=== PATIENT | male | born 1950 ===

== ENCOUNTER 2025-05-08 02:40 | Inpatient (IN) | payer OTHER, MEDICARE ==
[2025-05-08] VITALS (61 sets, daily range): BP systolic 64–129; BP diastolic 36–104
[~2025-05-08] VITALS: Ht 175.3 cm; Wt 98.6 kg
[2025-05-08] MEDS ORDERED: FLU VACC TS2025(65UP)/MF59C/PF 45 MCG/0.5 ML SYRINGE IM SCH (05:30)
[2025-05-08] MEDS ORDERED: Insulin Human Lispro 100 Units/ML 3ML Syringe SC SCH ×2 (06:00→16:30)
[2025-05-08 07:12] LABS: Source, Urine Foley catheter
[2025-05-08 07:16] LABS: Bilirubin, Urine Neg (Neg); Color, Urine Yellow (P-Yellow); Glucose Qualitative, Urine 3+ (Neg); Ketones, Urine Neg (Neg); Leukocyte Esterase, Urine 3+ (Neg); Protein, Urine 4+ (Neg); Specific Gravity, Urine 1.010 (1.003-1.022); Urobilinogen, Urine NORM (Normal)
[2025-05-08 07:24] LABS: Alanine Aminotransfer (ALT/SGP 14.0 U/L (12-78); Albumin, Blood 2.6 g/dL (3.4-5.0); Albumin/Globulin Ratio 0.6 (0.8-1.8); Anion Gap 16.0 mmol/L (3-11); Aspartate Aminotrans (AST/SGOT 10.0 U/L (12-37); Bilirubin, Total 0.3 mg/dL (0.1-1.0); Blood Urea Nitrogen 78.0 mg/dL (8-24); CO2, Blood 17.0 mmol/L (21-32); Calcium, Blood 9.6 mg/dL (8.5-10.1); Chloride, Blood 101.0 mmol/L (98-108); Creatinine, Blood 3.33 mg/dL (0.60-1.20); Globulin, Blood 4.2 g/dL (2.2-4.0); Glucose, Blood 235.0 mg/dL (70-99); Magnesium, Blood 2.2 mg/dL (1.6-2.4); Potassium, Blood 5.0 mmol/L (3.5-5.5); Sodium, Blood 129.0 mmol/L (136-145); Total Protein, Blood 6.8 g/dL (6.4-8.2)
[2025-05-08 07:43] LABS: Red Blood Cells, Urine TNTC /hpf (0-2); White Blood Cells, Urine TNTC /hpf (0-5)
--- NOTE | 2025-05-08 07:52 | NUR ---
[place] of Care: Care assumed at 0700hr. Patient sleeping, but easily roused to verbal stimuli. Remains drowsy when awake but oriented x4. C/o mild pain to back and lt shoulder (chronic), not requiring medication intervention at this time. VSS, but HR shows sinus tach 100-110, BP stable, but on 3 mcg/min levophed infusion. Peripheral IV's x2 patent and intact. Medi-port to lt upper chest (accessed at [facility]) patent and intact. Inman cath patent and intact, draining dark yellow cloudy/purulent urine. Call placed to Dr. Saravia this morning. Reported lab values (including lactic 5.8) and requested additional fluid bolus to be followed by maintenance fluid infusing. Dr. Saravia instructed she was reviewing chart and would place orders. Call light in reach. Will continue to monitor.
[2025-05-08 07:53] LABS: Ferritin, Serum 32.0 ng/mL (26-388); Total Iron Binding Capacity 455.0 ug/dL (250-450)
[2025-05-08] MEDS ORDERED: NS 2,000 ML IV STA (08:01)
[2025-05-08] MEDS ORDERED: FentaNYL Citrate 50 MCG/ML 2 ML Injection IV PRN (08:05)
[2025-05-08] MEDS ORDERED: NS 1,000 ML IV SCH (08:05)
[2025-05-08] MEDS ORDERED: Piperacillin/Tazobactam Sod 3.375 GM in NS 100 ML IV SCH (08:06)
[2025-05-08] MEDS ORDERED: NS 250 ML IV PRN (08:10)
[2025-05-08] MEDS ORDERED: Pantoprazole Sodium 40 MG Injection IV SCH (08:15)
[2025-05-08] MEDS ORDERED: Lactobacil 2-S.Thermo-Bifido 1 1 Cap PO SCH (09:00)
[2025-05-08] MEDS ORDERED: Miconazole Nitrate 2% 85 GM PWD TOP SCH (09:00)
[2025-05-08] MEDS ORDERED: Heparin Sodium,Porcine 5,000 UNIT/0.5 ML SDV SC SCH (09:00)
[2025-05-08 09:55] LABS: BASOPHILS ABSOLUTE AUTO 0.06 K/mm3 (0.00-0.23); BASOPHILS PERCENT AUTO 0 % (0-2); EOSINOPHILS ABSOLUTE AUTO 0.00 K/mm3 (0.00-0.68); EOSINOPHILS PERCENT AUTO 0 % (0-6); Hematocrit 26.7 % (37.0-53.0); Hemoglobin 7.5 g/dL (13.5-17.5); IMMATURE GRAN ABSOLUTE AUTO 0.30 K/mm3 (0.00-0.10); IMMATURE GRAN PERCENT AUTO 1 % (0-1); LYMPHOCYTES ABSOLUTE AUTO 0.63 K/mm3 (0.84-5.20); LYMPHOCYTES PERCENT AUTO 3 % (21-46); MONOCYTES ABSOLUTE AUTO 1.15 K/mm3 (0.16-1.47); MONOCYTES PERCENT AUTO 5 % (4-13); Mean Corpuscular HGB Conc 28.1 g/dL (31.5-36.5); Mean Corpuscular Volume 77 fL (80-100); NEUTROPHILS ABSOLUTE AUTO 23.19 K/mm3 (1.96-9.15); NEUTROPHILS PERCENT AUTO 92 % (41-73); NRBC ABSOLUTE 0.00 K/mm3 (0.00-0.02); NRBC Auto 0.0 /100 WBC (0.0-0.2); Platelet Count 349 K/mm3 (150-400); RDW Coefficient Variation 19.7 % (11.7-14.2); RDW Standard Deviation 54.2 fL (35.1-46.3)
[2025-05-08] MEDS ORDERED: FentaNYL Citrate 50 MCG/ML 2 ML Injection ONE (10:33)
[2025-05-08] MEDS ORDERED: EpiNEPhrine 1 MG/1 ML 1ML Vial ONE (10:34)
[2025-05-08] MEDS ORDERED: NS 500 ML IV PRN (11:25)
[2025-05-08] MEDS ORDERED: Phenylephrine HCl 100 MCG/ML-NS 10MLSYR (1MG/10ML) ONE (11:37)
[2025-05-08] MEDS ORDERED: Ondansetron HCl 2 MG / ML 2ML Vial ONE (11:47)
[2025-05-08] MEDS ORDERED: Methyl Salicylate/Menth/Camph 57 GM TUBE TOP PRN (18:05)
--- NOTE | 2025-05-08 18:13 | NUR ---
Shift Summary: Patient continues to improve throughout shift. Mostly slept all shift when not stimulated by staff. But continues to rouse to verbal stimuli and now more alert when awake. Able to stay awake and feed self for dinner tray, only 10% intake (poor apatite), tolerating PO fluid without difficulty. Transferred to OR approx 1130hr with Dr. Euceda, bilateral uretal stents replaced. Urine consistency improved throughout remainder of shift, no longer cloudy/purulent, now dark yellow and clear. VS remain stable, levophed gtt stopped approx 1300hr. Call light in reach, makes needs known.
[2025-05-08] MEDS ORDERED: Arginine/Glutamine/Calcium Hmb 1 Packet PO SCH (21:00)
[2025-05-08] MEDS ORDERED: CefTRIAXone Sodium 1,000 MG in NS 100 ML IV SCH (23:00)
[2025-05-09] VITALS (100 sets, daily range): BP systolic 90–141; BP diastolic 37–116
[2025-05-09 02:50] LABS: BASOPHILS ABSOLUTE AUTO 0.02 K/mm3 (0.00-0.23); BASOPHILS PERCENT AUTO 0 % (0-2); EOSINOPHILS ABSOLUTE AUTO 0.00 K/mm3 (0.00-0.68); EOSINOPHILS PERCENT AUTO 0 % (0-6); Hematocrit 23.1 % (37.0-53.0); Hemoglobin 6.5 g/dL (13.5-17.5); IMMATURE GRAN ABSOLUTE AUTO 0.26 K/mm3 (0.00-0.10); IMMATURE GRAN PERCENT AUTO 1 % (0-1); LYMPHOCYTES ABSOLUTE AUTO 0.55 K/mm3 (0.84-5.20); LYMPHOCYTES PERCENT AUTO 3 % (21-46); MONOCYTES ABSOLUTE AUTO 0.42 K/mm3 (0.16-1.47); MONOCYTES PERCENT AUTO 2 % (4-13); Mean Corpuscular HGB Conc 28.1 g/dL (31.5-36.5); Mean Corpuscular Volume 77 fL (80-100); NEUTROPHILS ABSOLUTE AUTO 17.34 K/mm3 (1.96-9.15); NEUTROPHILS PERCENT AUTO 93 % (41-73); NRBC ABSOLUTE 0.00 K/mm3 (0.00-0.02); NRBC Auto 0.0 /100 WBC (0.0-0.2); Platelet Count 304 K/mm3 (150-400); RDW Coefficient Variation 19.8 % (11.7-14.2); RDW Standard Deviation 54.6 fL (35.1-46.3)
--- NOTE | 2025-05-09 02:59 | NUR ---
UPDATE CALLED DR. CARR ABOUT PATIENT HEARTRATE IN THE 40'S LOWEST 38. DOCTOR SAID HE WOULD LOOK AT NOTES AND SAVED STRIPS AND WOUDL LET NURSE KNOW IF ANY NEW ORDERS. PATIENT SLEEPING
[2025-05-09 03:11] LABS: Anion Gap 11.0 mmol/L (3-11); Blood Urea Nitrogen 76.0 mg/dL (8-24); CO2, Blood 20.0 mmol/L (21-32); Calcium, Blood 9.0 mg/dL (8.5-10.1); Chloride, Blood 108.0 mmol/L (98-108); Creatinine, Blood 2.63 mg/dL (0.60-1.20); Glucose, Blood 266.0 mg/dL (70-99); Potassium, Blood 3.9 mmol/L (3.5-5.5); Sodium, Blood 135.0 mmol/L (136-145)
--- NOTE | 2025-05-09 06:12 | NUR ---
SHIFT SUMMARY PATIENT A&O X3 KNOWS IN HOSPITAL JUST NOT SURE OF TOWN. PATEINT UNABLE TO MOVE SELF AND WANTS NURSES TO MOVE SLOW AND DOES PREFER TO BE ON RIGHT SIDE. AFERIBLE AND HR IN THE 70-80'S FIRST HALF OF SHIFT BUT DROPPED DOWN IN TO THE 30-40'S. MD (LILLY) AWARE X2 AND NO NEW ORDER GIVE. PATIENT HR GOES UP INTO THE 70-80'S WHEN AWAKE. ON ROOM AIR BUT PATIENT DESATS WHEN SLEEPING O2 VIA NC PUT ON 2L MD AWARE. PATIENT HAS RING DRAINING TO GRAVITY YELLOW IN COLOR WITH SOME CLOUDINESS. LEFT CHEST MEDIPORT WITH 1 UNIT OF PRBC INFUSION @125. RIGHT AC PERIPHERAL IV WITH LEVOPHED 3MCG AND NS 125 INFUSING. PATIENT USES CALL LIGHT WHEN IN NEED. CALLL LIGHT WITHIN REACH.
[2025-05-09 08:19] LABS: Ferritin, Serum 56.0 ng/mL (26-388); Total Iron Binding Capacity 252.0 ug/dL (250-450)
[2025-05-09] MEDS ORDERED: Heparin Sodium,Porcine 5,000 UNIT/0.5 ML SDV SC SCH (09:00)
--- NOTE | 2025-05-09 09:23 | NUR ---
AM NOTE: THIS RN ASSUMED CARE OF PT AT APPROX 0700, BEDSIDE REPORT FROM AIDEE XIAO. PT A/OX4, ABLE TO MAKE NEEDS KNOWN. COOPERATIVE W/ CARE. HR 40-50'S WHILE ASLEEP W/ SINUS BRADYCARDIA ON MONITOR, UP TO 110'S WHILE AWAKE W/ SINUS TACHYCARDIA & PVC'S ON MONITOR. LEVOPHED GTT INFUSING TO MAINTAIN MAP >65, SEE FLOWSHEET FOR TITRATIONS. PT DENIES CHEST PAIN/PRESSURE. SPO2 >90% ON RA, RESPIRATIONS EVEN & UNLABORED. AFEBRILE. 1U PRBC INFUSION COMPLETED THIS AM, TOLERATED WELL. IVF INFUSING PER EMAR. MEDIPORT ACCESSED FOR INFUSIONS. RING CATH PATENT & DRAINING CLOUDY YELLOW URINE W/ SEDIMENT. TOLERATING PO INTAKE WELL, DENIES N/V. PT ASSISTED W/ REPOSITIONING, REFUSES POSITIONING TO LEFT SIDE AT THIS TIME. EDUCATION PROVIDED ON PRESSURE ULCER PREVENTION, PT VOICES UNDERSTANDING OF THIS.
--- NOTE | 2025-05-09 10:21 | NUR ---
PHYSICIAN CONTACT: PT NOTED TO HAVE SUSTAINED RUNS OF BIGEMINY W/ BRADYCARDIA ON MONITOR. WHEN NOT IN BIGEM, RHYTHM APPEARS TO BE SINUS W/ PAC'S, PVC'S, AND SEVERAL DROPPED BEATS. CALL PLACED TO DR. LOPEZ. ORDERS RECEIVED TO TRANSFUSE AN ADDITIONAL UNIT OF PRBC'S NOW, CHECK MG & PHOS LEVEL. TO PLACE ORDERS.
[2025-05-09 10:58] LABS: Magnesium, Blood 2.0 mg/dL (1.6-2.4); Phosphorus, Blood 3.7 mg/dL (2.5-4.9)
[2025-05-09] MEDS ORDERED: MIRALAX17 GM PO (14:05)
[2025-05-09] MEDS ORDERED: METF500 PO (14:06)
[2025-05-09] MEDS ORDERED: CULTURELLE KID1 EA13 PO (14:07)
[2025-05-09] MEDS ORDERED: ONDA4 PO (14:08)
[2025-05-09] MEDS ORDERED: Norco 10-325 T1 EACH PO (14:09)
[2025-05-09] MEDS ORDERED: ALLO100 PO (14:10)
[2025-05-09] MEDS ORDERED: JARDIANCE25 MG PO (14:10)
[2025-05-09] MEDS ORDERED: SENNA LAXATIVE8.6 MG PO (14:11)
[2025-05-09] MEDS ORDERED: MAGNESIUM250 MG PO (14:11)
[2025-05-09] MEDS ORDERED: ASPI81CH PO (14:12)
[2025-05-09] MEDS ORDERED: OMEP20ER PO (14:13)
[2025-05-09] MEDS ORDERED: ERGO400 PO (14:13)
[2025-05-09] MEDS ORDERED: DULCOLAX400 MG/5 M PO (14:14)
[2025-05-09] MEDS ORDERED: Fleet Enema132 ML PR (14:15)
[2025-05-09] MEDS ORDERED: BISA10S PR (14:15)
[2025-05-09] MEDS ORDERED: ASPERCREME LIDO73 ML TOP (14:16)
--- NOTE | 2025-05-09 16:04 | NUR ---
PHYSICIAN CONTACT: CALL RECEIVED FROM [facility] REPORTING BOTH BLOOD CULTURES DRAWN PRIOR TO TRANSFER ARE POSITIVE FOR GRAM + COCCI IN BOTH SETS. PCR RESULTED IN ENTEROCOCCUS FAECALIS. DR. LOPEZ NOTIFIED OF RESULTS.
--- NOTE | 2025-05-09 17:10 | NUR ---
END OF SHIFT NOTE: PT REMAINS A/OX4, ABLE TO MAKE NEEDS KNOWN TO STAFF. HR REMAINS LABILE, UP TO 90'S WHILE AWAKE & DOWN TO 40'S WHILE ASLEEP. ECTOPY HAS DECREASED THIS AFTERNOON FOLLOWING COMPLETION OF 2ND UNIT PRBC'S. LEVOPHED TITRATED OFF THIS AFTERNOON BUT RESTARTED AT 1708 DUE TO MAP SUSTAINING <65. NS INFUSING AT 125 ML/HR PER EMAR VIA MEDIPORT. POWERGLIDE TO LAYO INFUSING IV ABX. SPO2 >90% ON RA. AFEBRILE. RING CATH W/ 1600 ML URINE OUTPUT OF THIS TIME. NO BM, BOWEL CARE INITIATED TODAY. PT REPOSITIONED Q2HR WHEN AGREEABLE, EDUCATION PROVIDED ON IMPORTANCE OF FREQUENT REPOSITIONING. REFUSED BED BATH. C/O PAIN, MEDICATED PER EMAR. PT'S SPOUSE TO BEDSIDE FOR VISIT TODAY, UPDATED ON PLAN OF CARE. NO OTHER NEEDS AT THIS TIME, CALL LIGHT IN REACH.
[2025-05-09] MEDS ORDERED: Sod Ferric Gluc Complx/Sucrose 125 MG in NS 100 ML IV SCH (18:30)
[2025-05-09] MEDS ORDERED: Ampicillin Sod 2,000 MG in NS 100 ML IV SCH (21:00)
[2025-05-10] VITALS (59 sets, daily range): BP systolic 80–140; BP diastolic 39–92
[2025-05-10 03:58] LABS: Hematocrit 27.6 % (37.0-53.0); Hemoglobin 8.1 g/dL (13.5-17.5); Mean Corpuscular HGB Conc 29.3 g/dL (31.5-36.5); Mean Corpuscular Volume 77 fL (80-100); NRBC ABSOLUTE 0.03 K/mm3 (0.00-0.02); NRBC Auto 0.2 /100 WBC (0.0-0.2); Platelet Count 270 K/mm3 (150-400); RDW Coefficient Variation 19.4 % (11.7-14.2); RDW Standard Deviation 54.6 fL (35.1-46.3)
[2025-05-10 04:13] LABS: Anion Gap 9.0 mmol/L (3-11); Blood Urea Nitrogen 78.0 mg/dL (8-24); CO2, Blood 20.0 mmol/L (21-32); Calcium, Blood 9.0 mg/dL (8.5-10.1); Chloride, Blood 112.0 mmol/L (98-108); Creatinine, Blood 1.8 mg/dL (0.60-1.20); Glucose, Blood 199.0 mg/dL (70-99); Potassium, Blood 3.3 mmol/L (3.5-5.5); Sodium, Blood 138.0 mmol/L (136-145)
[2025-05-10] MEDS ORDERED: Potassium Chloride 10 Meq Tablet SA PO ONE (04:20)
--- NOTE | 2025-05-10 05:05 | NUR ---
SHIFT SUMMARY PATIENT SLEPT THROUGH NIGHT ONLY TO WAKE FOR PAIN MEDS PER EMAR. A&O X4. AFERIBLE THROUGH SHIFT. HEART RATE IN 70'S BUT WHEN PATIENT SLEEPS DROPS DOWN INTO THE 30-40'S MD AWARE AND NO NEW ORDERS. SBP 110-120'S. HAS POWERGLEDE IN RIGHT UPPER ARM AND MEDIPORT IN LEFT CHEST. LEVOPHED INFUSING @ 1 AND NORMAL SALINE INFUSING @ 125. HAS RING DRAINING TO GRAVITY YELLOW IN COLOR WITH SOME CLOUDINESS. PATIENT HAD XL FORMED BROWN STOOL AND PAD WAS CHANGES AND DEPENDS WAS PUT ON PATIENT. PATEINT ON ROOM AIR SATTING @ 97%. CALL LIGHT WITHIN REACH.
[2025-05-10] MEDS ORDERED: Ampicillin Sod 2,000 MG in NS 100 ML IV SCH (08:00)
[2025-05-10] MEDS ORDERED: HYDROcodone 5-APAP 325 TAB PO PRN (13:30)
--- NOTE | 2025-05-10 17:30 | NUR ---
TRANSFER TO PCU 04 REPORT RECIEVED FROM [facility] AT ABOUT 1715. PT TRANSFERRED FROM ICU BY LIA AT ABOUT 1730, CHART AND BELONGINGS IN DISPOSITION. PT TRANSFERRED IN RECLINER. FLUIDS AND IV ABX RESTARTED PER EMAR. VSS. SEE NOTES FOR ASSESSMENT AND UPDATES.
--- NOTE | 2025-05-10 17:36 | NUR ---
SHIFT SUMMARY/TRANSFER TO PCU: NO ACUTE EVENTS THIS SHIFT. PT A/OX4, ABLE TO MAKE NEEDS KNOWN. PT VERY PARTICULAR ABOUT CARE & RESISTENT TO SOME CARE INCLUDING Q2HR TURNS. HR UP TO 100'S WHILE AWAKE, DOWN TO 40'S WHILE ASLEEP. SINUS RHYTHM W/ PVC'S ON MONITOR. LEVOPHED GTT OFF AT START OF SHIFT, BP STABLE W/ MAP >65. SPO2 >90% ON RA. AFEBRILE. RING CATH PATENT & DRAINING YELLOW URINE TO GRAVITY. MULTIPLE INCONTINENT BM'S, MIXED HARD & LIQUID STOOLS FOLLOWING STOOL SOFTENER ADMINISTRATION; ATTENDS CHANGED TO KEEP C/D/I. MEDIPORT INFUSING NS @125 ML/HR. POWERGLIDE TO LAYO SALINE LOCKED. CHG BATH COMPLETED. PT UP TO CHAIR THIS AFTERNOON W/ LIFT. Q2HR REPOSITIONING PROVIDED, PT REFUSED POSITIONING SEVERAL TIMES & STATED THAT HE UNDERSTANDS THE IMPORTANCE OF REPOSITIONING WELL THE RISK OF WORSENING PRESSURE INJURIES BUT IS OK WITH THAT. C/O PAIN IN MULTIPLE AREAS, MEDICATED PER EMAR W/ RELIEF. PT TRANSFERRED TO PCU-4 BY CHAIR THIS EVENING W/ ALL BELONGINGS. REPORT TO AARON XIAO & NGHIA RN TO ASSUME CARE.
--- NOTE | 2025-05-10 18:42 | NUR ---
SUMMARY OF CARE PT IS A&O X4, SOMEWHAT SET IN HIS WAYS/ SPECIFIC ABOUT CARE. DECLINES REPOSITIONING AND SOME CARE. LIFT REQUIRED FOR TRANSFER. SATTING > 93% ON RA. LUNG SOUNDS CLEAR AT ALL LOBES. NO C/O SOB. SR 70s, BP SLIGHTLY SOFT, MAP > 65. NO C/O CHEST PAIN/ PRESSURE. NO GI OUTPUT SINCE TRANSFER TO PCU, NOTABLE HYPERACTIVE BOWEL TONES IN ALL [address] RING IN [address] DRAINING YELLOW URINE TO GRAVITY. SCABBY SKIN NOTED AT TOES AND BUE, REFUSED FULL SKIN ASSESSMENT UNTIL ADMINISTRATION OF PAIN MEDS AT 2300 FOR BACK PAIN. STATED THAT PAIN IS CURRENTLY A TOLERABLE 5/10. NO PAIN NOTED AT OTHER AREAS AT THIS TIME. PT HAS A RUE POWERGLIDE, SALINE LOCKED, AND A L CHEST MEDIPORT WITH FLUIDS INFUSING AT 125 mL/hr. PT CURRENTLY SITTING IN BED. CALL LIGHT IN REACH. SEE NOTES FOR UPDATES.
[2025-05-11 03:47] VITALS: BP 115/65
[2025-05-11 03:56] LABS: Hematocrit 28.4 % (37.0-53.0); Hemoglobin 8.4 g/dL (13.5-17.5); Mean Corpuscular HGB Conc 29.6 g/dL (31.5-36.5); Mean Corpuscular Volume 78 fL (80-100); NRBC ABSOLUTE 0.02 K/mm3 (0.00-0.02); NRBC Auto 0.2 /100 WBC (0.0-0.2); Platelet Count 236 K/mm3 (150-400); RDW Coefficient Variation 19.9 % (11.7-14.2); RDW Standard Deviation 55.8 fL (35.1-46.3)
[2025-05-11 04:16] LABS: Anion Gap 10.0 mmol/L (3-11); Blood Urea Nitrogen 62.0 mg/dL (8-24); CO2, Blood 20.0 mmol/L (21-32); Calcium, Blood 8.7 mg/dL (8.5-10.1); Chloride, Blood 111.0 mmol/L (98-108); Creatinine, Blood 1.29 mg/dL (0.60-1.20); Glucose, Blood 145.0 mg/dL (70-99); Magnesium, Blood 1.7 mg/dL (1.6-2.4); Potassium, Blood 3.5 mmol/L (3.5-5.5); Sodium, Blood 137.0 mmol/L (136-145)
--- NOTE | 2025-05-11 07:26 | NUR ---
SHIFT SUMMARY:: PT IS A&OX4, PECULIAR WITH CARE. VSS ON RA. SR 70'S WITH BBB. +3 BLE EDEMA. PT C/O PAIN TO HIS BACK. HE WAS MEDICATED WITH 5MG PO NORCO. NOOB THIS SHIFT, REPOSITIONED TOLERATED. FREQUENTLY RESISTENT TO REPOSITIONING AND CARE. THIS NURSE REMINDED HIM THE IMPORTANCE OF REPOSITIONING FOR HIS SKIN. TOLERATING A CONS CARB DIET. TAKES MEDS WHOLE WITH WATER. RING CATHETER DRAINING LARGE AMOUNTS OF PALE YELLOW URINE WITH SEDIMENT, TO GRAVITY. NO BM THIS SHIFT, BOWEL CARE ADMINISTERED. BED IN LOWEST POSITION, CALL LIGHT WITHIN REACH. CALLS APPROPRIATELY AND IS ABLE TO ADVOCATE NEEDS EFFECTIVELY.
[2025-05-11] MEDS ORDERED: Ampicillin Sod 2,000 MG in NS 100 ML IV SCH (07:30)
[2025-05-11] MEDS ORDERED: OXYB5 PO (08:22)
[2025-05-11] MEDS ORDERED: TAMSULOSIN HCL0.4 M1 PO (08:23)
--- NOTE | 2025-05-11 08:48 | NUR ---
NOTIFIED DR. SERRANO OF PT IN SVT W/PVCS, HR IN 130S, ASYMPTOMATIC. PER MD PLAN FOR METOPROLOL TARTRATE BID
[2025-05-11 09:07] VITALS: BP 115/84
[2025-05-11 11:00] VITALS: BP 91/59
[2025-05-11 11:36] VITALS: BP 108/65
[2025-05-11] MEDS ORDERED: Polyethylene Glycol 3350 17 gm PO PRN (12:10)
[2025-05-11] MEDS ORDERED: ZINC OXIDE/PETROLATUM, YELLOW 1 APPLIC/71 GM PASTE TOP PRN (14:45)
[2025-05-11 15:18] VITALS: BP 125/68
--- NOTE | 2025-05-11 17:50 | NUR ---
SHIFT SUMMARY PATIENT IS ALERT AND ORIENTED, ABLE TO FOLLOW COMMANDS AND MAKE NEEDS KNOWN. TELE IN PLACE, SINUS 80'S, SPO2 >90% ON RA. EPISODE OF SVT THIS SHIFT, HR IN 140'S, PATIENT DENIES CHEST PAIN OR PRESSURE, ECG PERFORMED, PROVIDER MADE AWARE, NEW ORDERS RECEIVED. PATIENT DENIES N/V/D THROUGHOUT SHIFT, PATIENT IS INCONTINENT OF STOOL. RING CATHETER IN PLACE, PATENT, AND DRAINING TO GRAVITY, YELLOW URINE PRESENT IN BAG. PATIENT HAS TWO PRESSURE INJURIES TO COCCYX AND FLANK, SEE SKIN ASSESSMENT FOR FURTHER INFORMATION. PATIENT ENDORSING CHRONIC PAIN THROUGHOUT SHIFT WELL PAIN RELATED TO PRESSURE INJURIES, MEDICATED PER EMAR WITH RELIEF. PATIENT IS A LIFT ASSIST TO THE CHAIR. PATIENT MINIMALLY PARTICIPATES IN POSITION CHANGES. PATIENT LYING IN BED, BED IN LOWEST POSITION, CALL LIGHT WITHIN REACH, PATIENT CALLS APPROPRIATELY.
[2025-05-11 20:48] VITALS: BP 113/85
[2025-05-11] MEDS ORDERED: Docusate Sodium/Senna 1 Tab PO SCH (21:00)
[2025-05-12 00:14] VITALS: BP 110/76
[2025-05-12 04:45] VITALS: BP 107/64
[2025-05-12 05:14] LABS: Hematocrit 27.8 % (37.0-53.0); Hemoglobin 8.3 g/dL (13.5-17.5); Mean Corpuscular HGB Conc 29.9 g/dL (31.5-36.5); Mean Corpuscular Volume 77 fL (80-100); NRBC ABSOLUTE 0.00 K/mm3 (0.00-0.02); NRBC Auto 0.0 /100 WBC (0.0-0.2); Platelet Count 199 K/mm3 (150-400); RDW Coefficient Variation 20.1 % (11.7-14.2); RDW Standard Deviation 56.7 fL (35.1-46.3)
--- NOTE | 2025-05-12 06:55 | NUR ---
SHIFT SUMMARY:: PT IS A&OX4, PECULIAR WITH CARE. VSS ON RA. SR 70'S-90'S WITH BBB AND PVC'S. +3 BLE AND RUE EDEMA. PT C/O PAIN TO HIS BACK. HE WAS MEDICATED WITH 5MG PO NORCO. NOOB THIS SHIFT, REPOSITIONED TOLERATED. FREQUENTLY RESISTANT TO REPOSITIONING AND CARE. THIS NURSE REMINDED HIM THE IMPORTANCE OF REPOSITIONING FOR HIS SKIN. TOLERATING A CONS CARB DIET. TAKES MEDS WHOLE WITH WATER. RING CATHETER DRAINING LARGE AMOUNTS OF PALE YELLOW URINE WITH PARTICLES TO GRAVITY. ONE SMALL INCONTINENT BM THIS SHIFT. PT STATES HE IS NOT AWARE OF WHEN HE GOES. BOWEL CARE ADMINISTERED. BED IN LOWEST POSITION, CALL LIGHT WITHIN REACH. CALLS APPROPRIATELY AND IS ABLE TO ADVOCATE NEEDS EFFECTIVELY.
[2025-05-12 07:07] LABS: Albumin, Blood 1.8 g/dL (3.4-5.0); Anion Gap 9 mmol/L (3-11); Blood Urea Nitrogen 57 mg/dL (8-24); CO2, Blood 21 mmol/L (21-32); Calcium, Blood 8.8 mg/dL (8.5-10.1); Chloride, Blood 110 mmol/L (98-108); Creatinine, Blood 1.08 mg/dL (0.60-1.20); Glucose, Blood 165 mg/dL (70-99); Magnesium, Blood 1.6 mg/dL (1.6-2.4); Phosphorus, Blood 1.8 mg/dL (2.5-4.9); Potassium, Blood 3.3 mmol/L (3.5-5.5); Sodium, Blood 137 mmol/L (136-145); Thyroid Stimulating Hormone 1.480 uIU/mL (0.360-4.800)
[2025-05-12 08:50] VITALS: BP 114/55
[2025-05-12] MEDS ORDERED: HYDROcodone 5-APAP 325 TAB PO PRN (15:10)
[2025-05-12 17:04] VITALS: BP 110/52
--- NOTE | 2025-05-12 19:35 | NUR ---
SHIFT SUMMARY PATIENT AOX4 ABLE TO MAKE NEEDS KNOWN DENIES CP OR SOB VITALS STABLE. CHRONIC PAIN PAIN GETS NORCO PRN. DRESSING CDI. MANUEL REFUSED THE CHAIR TODAY AND REFUSED TO TURN EVERY 2 HOURS EVEN IH EDUCATION.
[2025-05-12 20:05] VITALS: BP 121/75
[2025-05-13 00:19] VITALS: BP 119/62
[2025-05-13 04:08] VITALS: BP 130/75
[2025-05-13 04:31] LABS: Hematocrit 28.6 % (37.0-53.0); Hemoglobin 8.6 g/dL (13.5-17.5); Mean Corpuscular HGB Conc 30.1 g/dL (31.5-36.5); Mean Corpuscular Volume 77 fL (80-100); NRBC ABSOLUTE 0.00 K/mm3 (0.00-0.02); NRBC Auto 0.0 /100 WBC (0.0-0.2); Platelet Count 232 K/mm3 (150-400); RDW Coefficient Variation 20.4 % (11.7-14.2); RDW Standard Deviation 57.0 fL (35.1-46.3)
--- NOTE | 2025-05-13 04:43 | NUR ---
PATIENT TRANSFER FROM U 04. REPORT TAKEN FROM JODY XIAO. ALERT ORIENTED AND LIFT PATIENT WITH CHRONIC RING, MEDIPORT LEFT UPPER CHEST, AND POWERGLIDE RIGHT UPPER ARM. DENIES CHEST PAIN, SOB, AND N/V. ON ROOM AIR AND REPORTS WANTS TV ON. BELONGINGS WITH PATIENT. CALL LIGHT IN REACH. BED IN LOWEST POSITION. TM.
--- NOTE | 2025-05-13 04:59 | NUR ---
SHIFT SUMMARY:: PT IS A&OX4, PECULIAR WITH CARE. VSS ON RA. SR 70'S-90'S WITH BBB AND PVC'S. +3 BLE AND RUE EDEMA. PT C/O 8/10 PAIN TO HIS ABD, BACK, KNEES, AND L SHOULDER, MEDICATED WITH 5MG PO NORCO. NOOB THIS SHIFT, REPOSITIONED TOLERATED. FREQUENTLY RESISTANT TO REPOSITIONING AND CARE. TOLERATING A CONS CARB DIET. TAKES MEDS MULTIPLE AT A TIME, WHOLE WITH WATER. RING CATHETER DRAINING TO GRAVITY, LARGE AMOUNTS OF PALE YELLOW URINE WITH PARTICLES. ONE SMALL INCONTINENT BM THIS SHIFT, BRIEF IN PLACE AND CHANGED NEEDED. BOWEL CARE ADMINISTERED. BED IN LOWEST POSITION, CALL LIGHT WITHIN REACH. CALLS APPROPRIATELY AND IS ABLE TO ADVOCATE NEEDS EFFECTIVELY. PT TRANSFERRED IN HIS HOSPITAL BED TO ROOM 331 AT 0430, WITH ALL BELONGINGS IN HIS POSSESSION.
[2025-05-13 05:01] LABS: Albumin, Blood 1.9 g/dL (3.4-5.0); Anion Gap 9 mmol/L (3-11); Blood Urea Nitrogen 52 mg/dL (8-24); CO2, Blood 23 mmol/L (21-32); Calcium, Blood 8.8 mg/dL (8.5-10.1); Chloride, Blood 107 mmol/L (98-108); Creatinine, Blood 1.00 mg/dL (0.60-1.20); Glucose, Blood 169 mg/dL (70-99); Magnesium, Blood 1.6 mg/dL (1.6-2.4); Phosphorus, Blood 1.7 mg/dL (2.5-4.9); Potassium, Blood 3.7 mmol/L (3.5-5.5); Sodium, Blood 135 mmol/L (136-145)
--- NOTE | 2025-05-13 05:55 | NUR ---
PT COMPLAINING OF NAUSEA. NO MEDS AVAILABLE ON AUG. WAITING FOR DR. SEGURA TO CALL BACK.
[2025-05-13] MEDS ORDERED: Ondansetron HCl 2 MG / ML 2ML Vial IV PRN (06:05)
[2025-05-13 07:30] VITALS: BP 114/54
[2025-05-13] MEDS ORDERED: ZINC OXIDE/PETROLATUM, YELLOW 1 APPLIC/71 GM PASTE TOP PRN (12:00)
[2025-05-13 16:29] VITALS: BP 114/54
--- NOTE | 2025-05-13 19:32 | NUR ---
DR. AYERS COMPLETED THORACENTESIS THIS AFTERNOON AND I ASSISTED AT BEDSIDE. 1200 ML OF BLOOD REMOVED FROM LEFT LUNG BASE. PLAN PER DR. AYERS IS TO DO ANOTHER THORACENTESIS TOMORROW, LOW DOSE VITAMIN K WAS GIVEN THIS EVENING AND WARFARIN DC'D. BANDAID SITE TO LEFT LUNG BASE REMAINS C/D/I. NO SIGNS OF BLEEDING NOTED AFTER PROCEDURE. PT PLACED ON CONT PULSE OX MONITORING AND SATTING WNL ON ROOM AIR. PT REPORTS MILD PAIN TO "LUNGS" WITH DEEP INSPIRATION. IV ANTIBS ADMINISTERED ORDERED. PT DOES NOT SEEM TO BE TOLERATING THICKENED LIQUIDS, AFTER DINNER HIS VOICE/UPPER AIRWAY SOUNDED VERY MOIST. PALLIATIVE WAS CONSULTED INITIALLY DUE TO ASP PNEUMONIA AND PT OPTED TO NOT HAVE PEG TUBE PLACED AT THIS TIME AND RESUME MODIFIED FULL LIQUID DIET. THIS MAY NEED TO BE READDRESSED TOMORROW.
[2025-05-13 19:57] VITALS: BP 102/51
[2025-05-13 22:58] VITALS: BP 120/58
[2025-05-14 03:25] VITALS: BP 120/56
--- NOTE | 2025-05-14 06:07 | NUR ---
SHIFT SUMMARY- PTS PAIN MEDICATED PER EMR. PT DOES NOT ALLOW STAFF TO TURN HIM OR TURN HIMSELF. AMBULATION-BEDREST ELIMINATION- RING MEDICATION- WWW
[2025-05-14 07:09] VITALS: BP 107/55
--- NOTE | 2025-05-14 10:03 | NUR ---
AM NOTE: PATIENT ALERT AND ORIENTED X4. MOVING ALL EXTREMITIES. OVERALL VERY WEAK AND LIMITED RANGE IN LEFT SHOULDER. LIFT PATIENT. Q2 TURNS AND NEEDED. DENIES PAIN THIS MORNING, RECENTLY MEDICATED BY PRIOR SHIFT. ON ROOM AIR SATING ABOVE 95%. LUNG SOUNDS CLEAR AND DIM IN BASES. TELE SHOWING SR WITH PAC'S AND 1ST DEGREE. DENIES CHEST PAIN/PRESSURE/PALPITATIONS. BLE EDEMA. SCD'S IN PLACE. BOWEL TONES PRESENT. TOLERATING PO DIET WITHOUT ISSUES. ACHS BLOOD SUGARS WITH INSULIN COVERAGE. RING CATH IN PLACE DRAINING YELLOW URINE. CATH CARE COMPLETED THIS AM. INCONTINENT OF BOWEL. SKIN WITH SCATTERED BRUISING AND SCABS. STAGE 2 PRESSURE WOUND TO COCCYX/SACRUM. SEE WOUND CARE ORDERS AND CHART PHOTOS. OCCUPATIONAL THERAPY IN THIS MORNING. CALL LIGHT IN REACH. THIS RN REPORTED OFF TO DIANDRA XIAO AT 1000.
[2025-05-14 11:18] VITALS: BP 105/68
[2025-05-14] MEDS ORDERED: Dextran/Hypromellose/Glycerin 15 DROP/ML BTL BOTHEYES PRN (13:00)
[2025-05-14] MEDS ORDERED: Docusate Sodium/Senna 1 Tab PO SCH (14:00)
[2025-05-14] MEDS ORDERED: Polyethylene Glycol 3350 17 gm PO SCH (14:00)
--- NOTE | 2025-05-14 14:03 | NUR ---
REFUSING REPOSITIONS PT IS REFUSING REPOSITIONS. PT DID ALLOW FOR HIPS TO BE TUGGED A LITTLE AN FOR PILLOWS TO BE SLIGHTLY ADJUSTED BUT PT HAS REMAINED ON THE R SIDE SINCE ASSUMPTION OF CARE TODAY AT 1000.
[2025-05-14 15:23] VITALS: BP 113/54
--- NOTE | 2025-05-14 15:54 | NUR ---
SHIFT SUMMARY ASSUMED CARE OF PT AT 1000 TODAY. THIS RN AGREED WITH PREVIOUS ORIENTATION & MOBILITY SPECIALIST. PT REFUSING TO TURN TO HIS LEFT SIDE TODAY, STATING IT IS TOO PAINFUL. PT EDUCATED ON THE IMPORTANCE OF REPOSITIONING TO PREVENT FURTHER SKIN BREAKDOWN AND WOUNDS. PT STATED "I UNDERSTAND AND ACCEPT THE RISK FOR NOW". PT DID ALLOW FOR REPOSITIONING SUPINE ONCE TODAY. WOUND CARE COMPLETED AND BANDAGES TO SACRUM & R LATERAL ABD CHANGED AFTER AREA WAS CLEANSED. NO OTHER ACUTE CHANGES FROM PRIOR NURSE ASSESSMENT. VS REVIEWED. CALL LIGHT IN REACH.
[2025-05-14 20:25] VITALS: BP 102/68
[2025-05-15 00:05] VITALS: BP 101/49
[2025-05-15 04:05] VITALS: BP 118/59
--- NOTE | 2025-05-15 05:06 | NUR ---
SHIFT SUMMARY- PTS PAIN MEDICATED PER EMR. PT DOES NOT ALLOW STAFF TO TURN HIM OR TURN HIMSELF. AMBULATION-BEDREST ELIMINATION- RING MEDICATION- WHOLE WITH WATER
[2025-05-15 06:20] LABS: Hematocrit 30.3 % (37.0-53.0); Hemoglobin 8.7 g/dL (13.5-17.5); Mean Corpuscular HGB Conc 28.7 g/dL (31.5-36.5); Mean Corpuscular Volume 79 fL (80-100); NRBC ABSOLUTE 0.00 K/mm3 (0.00-0.02); NRBC Auto 0.0 /100 WBC (0.0-0.2); Platelet Count 277 K/mm3 (150-400); RDW Coefficient Variation 21.5 % (11.7-14.2); RDW Standard Deviation 58.7 fL (35.1-46.3)
[2025-05-15 06:35] LABS: Albumin, Blood 2.0 g/dL (3.4-5.0); Anion Gap 8 mmol/L (3-11); Blood Urea Nitrogen 45 mg/dL (8-24); CO2, Blood 26 mmol/L (21-32); Calcium, Blood 9.1 mg/dL (8.5-10.1); Chloride, Blood 105 mmol/L (98-108); Creatinine, Blood 1.02 mg/dL (0.60-1.20); Glucose, Blood 165 mg/dL (70-99); Magnesium, Blood 1.7 mg/dL (1.6-2.4); Phosphorus, Blood 2.8 mg/dL (2.5-4.9); Potassium, Blood 3.9 mmol/L (3.5-5.5); Sodium, Blood 135 mmol/L (136-145)
[2025-05-15 06:45] LABS: BAND PERCENT MAN 2 % (0-8); BASOPHILS ABSOLUTE MAN 0.07 K/mm3 (0.00-0.23); BASOPHILS PERCENT MAN 1 % (0-2); EOSINOPHILS ABSOLUTE MAN 0.15 K/mm3 (0.00-0.68); EOSINOPHILS PERCENT MAN 2 % (0-6); LYMPHOCYTES ABSOLUTE MAN 0.83 K/mm3 (0.84-5.20); LYMPHOCYTES PERCENT MAN 11 % (21-46); MONOCYTES ABSOLUTE MAN 0.68 K/mm3 (0.16-1.47); MONOCYTES PERCENT MAN 9 % (4-13); MYELOCYTE ABSOLUTE MAN 0.15 K/mm3 (0.00-0.00); MYELOCYTE PERCENT MAN 2 % (0-0); NEUTROPHILS ABSOLUTE MAN 5.60 K/mm3 (1.96-9.15); PLASMA CELL ABSOLUTE MAN 0.07 K/mm3 (0.00-0.00); PLASMA CELLS PERCENT MAN 1 % (0-0); SEG NEUTROPHILS PERCENT MAN 72 % (41-73)
[2025-05-15 08:12] VITALS: BP 121/66
[2025-05-15] MEDS ORDERED: Amoxicillin500 MG PO (11:15)
[2025-05-15] MEDS ORDERED: METO25 PO (11:16)
[2025-05-15 11:37] VITALS: BP 100/52
[2025-05-15] MEDS ORDERED: HYDROcodone 5-APAP 325 TAB PO ONE (12:35)
--- NOTE | 2025-05-15 13:03 | NUR ---
PT DISCHARGED BACK TO [facility] VIA AMBULANCE. DISCHARGE PACKET AND BELONGINGS SENT WITH PT. THIS RN DISCUSSED DISCHARGE EDUCATION WITH PT, PT VERBALIZED UNDERSTANDING.
== END 2025-05-15 12:55 | DRG 659 ==
LOC: ICUE 02:40 → MEDS 04:52 → PCU 04:52 → ICUE 04:52 → PCU 05-10 17:01 → MEDS 05-13 04:27
PROVIDERS: Family Medicine; Internal Medicine; Urology; ADMIT Student in an Organized Health Care Education/Training Program
PROC: 0TP98DZ Removal of Intraluminal Device from Ureter, Via Natural or Artificial Opening Endoscopic (ICD-10-PCS; 2025-05-08)
PROC: 3E03329 Introduction of Other Anti-infective into Peripheral Vein, Percutaneous Approach (ICD-10-PCS; 2025-05-08)
PROC: 0T788DZ Dilation of Bilateral Ureters with Intraluminal Device, Via Natural or Artificial Opening Endoscopic (ICD-10-PCS; principal; 2025-05-08 11:00)
PROC: 30233N1 Transfusion of Nonautologous Red Blood Cells into Peripheral Vein, Percutaneous Approach (ICD-10-PCS; 2025-05-09)
PROC: 3E033XZ Introduction of Vasopressor into Peripheral Vein, Percutaneous Approach (ICD-10-PCS; 2025-05-10)
PROC: B24BZZZ Ultrasonography of Heart with Aorta (ICD-10-PCS; 2025-05-11)
DX: T83.592A Infection and inflammatory reaction due to indwelling ureteral stent, initial encounter (principal); A41.81 Sepsis due to Enterococcus; R65.21 Severe sepsis with septic shock; I47.10 Supraventricular tachycardia, unspecified; N17.9 Acute kidney failure, unspecified; E87.1 Hypo-osmolality and hyponatremia; E87.20 Acidosis, unspecified; F11.20 Opioid dependence, uncomplicated; N13.6 Pyonephrosis; D50.9 Iron deficiency anemia, unspecified; Y84.6 Urinary catheterization as the cause of abnormal reaction of the patient, or of later complication, without mention of misadventure at the time of the procedure; N40.0 Benign prostatic hyperplasia without lower urinary tract symptoms; I10 Essential (primary) hypertension; E11.9 Type 2 diabetes mellitus without complications; K21.9 Gastro-esophageal reflux disease without esophagitis; M10.9 Gout, unspecified; C10.9 Malignant neoplasm of oropharynx, unspecified; E87.5 Hyperkalemia; Z90.49 Acquired absence of other specified parts of digestive tract; Z96.652 Presence of left artificial knee joint; Z98.890 Other specified postprocedural states; E87.6 Hypokalemia; R53.81 Other malaise; Z79.899 Other long term (current) drug therapy; Z72.0 Tobacco use; I49.5 Sick sinus syndrome; Z79.82 Long term (current) use of aspirin; Y92.89 Other specified places as the place of occurrence of the external cause
CPT/HCPCS: 36415; 36430; 74018; 80048; 80053; 80069; 81001; 82607; 82728; 82746; 82947; 83540; 83550; 83605; 83735; 84100; 84443; 85025; 85027; 86850; 86900; 86901; 86920; 86923; 87040; 87077; 87086; 87186; 93005; 93010; 93306; 97110; 97162; 97166; 97530; A9270; C1751; C1758; C1769; C2617; J0169; J0290; J1642; J1644; J2371; J2405; J2470; J2543; J2704; J2916; J3010; J7030; J7050; P9016